=== PATIENT | female | born 1960 | race Caucasian/White ===

== ENCOUNTER 2018-12-20 09:33 | Emergency (ER) | payer MEDICAID, OTHER ==
[~2018-12-20] VITALS: Ht 165.1 cm; Wt 65.7 kg
[2018-12-20 09:41] VITALS: BP 91/46
--- NOTE | 2018-12-20 10:09 | NUR ---
FIRST CONTACT WITH PT. PT STATES "ABSCESS TO RIGHT LOWER JAW", +PAIN/SWELLING X2 DAYS, NO DENTIST. PT'S AOX4. RESPS EVEN AND UNLABORED.
--- NOTE | 2018-12-20 10:36 | NUR ---
PT GIVEN DC INSTRUCTIONS AND SCRIPTS. PT EDUCATED REGARDING DC MEDICATIONS. PT'S AOX4. RESPS EVEN AND UNLABORED. PT AMB TO DC WITH STEADY GAIT. NO ACUTE DISTRESS AT DC.
== END 2018-12-20 10:31 | disposition home or self-care (01) ==
LOC: ED 10:30
DX: K02.9 Dental caries, unspecified (principal); J44.9 Chronic obstructive pulmonary disease, unspecified; F17.200 Nicotine dependence, unspecified, uncomplicated
CPT/HCPCS: 99283